=== PATIENT | female | born 1985 | race Caucasian/White ===

== ENCOUNTER → 2021-12-24 | Outpatient (CLI) | payer OTHER ==
--- NOTE | 2021-12-24 11:58 | MR ---
EXAMINATION TYPE: MR lumbar spine wo con DATE OF EXAM: 12/24/2021 COMPARISON: NONE HISTORY: Low back pain, lump on each side of spine above sacrum. TECHNIQUE: T1 and T2 axial and sagittal images of the lumbar spine are submitted. FINDINGS: There is no abnormal signal seen within the visualized spinal cord or paraspinal soft tissu es. Vertebral body hemangioma L3, L2, and T12. Disc interspace and disc signal preserved at all levels. Simple appearing renal cyst. Tiny simple sub centimeter posterior segment right hepatic lobe cysts No soft tissue mass seen within the subcutaneou s tissues within the [id number]. At L1-2 there is no disc herniation, canal stenosis, or foraminal encroachment At L2-3 there is no disc herniation, canal stenosis, or foraminal encroachment At L3-4 there is no disc herniation, canal stenosis, or foraminal encroachment At L4-5 there is no disc herniation, canal stenosis, or foraminal encroachment. Facet arthropathy not ed. Minimal central disc bulging. At L5-S1 there is no disc herniation, canal stenosis, or foraminal encroachment. Facet arthropathy no robb. Spina bifida occulta S1. IMPRESSION: 1. No disc herniation, canal stenosis, or foraminal encroachment. Facet arthropathy L5-S1 and L4-L5 t here are 2 minimal central disc bulging L4-L5.
== END | disposition home or self-care (01) ==
LOC: RADMRIMAIN 10:43
PROVIDERS: ATTEND Physician Assistant Medical
DX: M47.817 Spondylosis without myelopathy or radiculopathy, lumbosacral region (principal); M51.27 Other intervertebral disc displacement, lumbosacral region
CPT/HCPCS: 72148

== ENCOUNTER 2022-12-15 11:33 | Emergency (ER) | payer OTHER ==
[2022-12-15 11:43] VITALS: TEMP 97.7
[2022-12-15] MEDS ORDERED: SODIUM CHLORIDE 0.9% 1,000 ML IV ONE (12:22)
[2022-12-15] MEDS ORDERED: HYDROmorphone 0.5 MG/0.5 ML SYRINGE IVP STA ×2 (12:22→13:59)
[2022-12-15] MEDS ORDERED: ONDANSETRON 4 MG/2 ML VIAL IVP STA (12:22)
--- NOTE | 2022-12-15 12:22 | ED ---
Abdominal Pain HPI - General Chief Complaint: Abdominal Pain Stated Complaint: abd pain Time Seen by Provider: 12/15/22 11:54 Source: patient, EMS, RN notes reviewed Mode of arrival: EMS Limitations: no limitations - History of Present Illness Initial Comments: 37-year-old female with a past medical history significant for breast cancer and Megan's presents to the emergency department with EMS with a chief complaint of pelvic pain. Patient reports worsening pelvic bloating feeling and left lower questions abdominal pain worsening since last night. She describes the pain as sharp. She is complaining of accompanying symptoms of nausea and vomiting. Denies fever, cough, sore throat, chest pain, shortness of breath, palpitations, dysuria, hematuria, vaginal bleeding, vaginal cramping. She does report that she has hyper vasculature in the uterus. - Related Data Home Medications Medication Instructions Recorded Confirmed ALPRAZolam [Xanax] 0.5 mg PO DAILY PRN 12/15/22 12/15/22 Cetirizine HCl [Zyrtec] 10 mg PO DAILY 12/15/22 12/15/22 HYDROcodone/APAP 5-325MG [[place] 1 tab PO Q6H PRN 12/15/22 12/15/22 5-325] Levothyroxine Sodium [Tirosint] 137 mcg PO DAILY 12/15/22 12/15/22 Meloxicam [Mobic] 7.5 mg PO DAILY PRN 12/15/22 12/15/22 Montelukast [Singulair] 10 mg PO HS 12/15/22 12/15/22 Vitamin E (Dl,Tocopheryl Acet) 1,000 unit PO DAILY 12/15/22 12/15/22 [Vitamin E (1000 Iu = 450 MG)] Zolpidem [Ambien] 10 mg PO HS PRN 12/15/22 12/15/22 traMADol HCL 50 mg PO Q6H PRN 12/15/22 12/15/22 traZODone HCL 100 mg PO HS PRN 12/15/22 12/15/22 Allergies Allergy/AdvReac Type Severity Reaction Status Date / Time No Known Allergies Allergy Verified 12/15/22 12:31 Review of Systems ROS Statement: Those systems with pertinent positive or pertinent negative responses have been documented in the HPI. ROS Other: All systems not noted in ROS Statement are negative. Past Medical History Past Medical History: Cancer Additional Past Medical History / Comment(s): Thyroid Cancer, Hasimotos Disease History of Any Multi-Drug Resistant Organisms: None Reported Past Surgical History: Appendectomy, Breast Surgery, Tonsillectomy Past Psychological History: No Psychological Hx Reported Smoking Status: Never smoker Past Alcohol Use History: Rare Past Drug Use History: None Reported General Exam Limitations: no limitations Course Vital Signs 12/15/22 12/15/22 11:35 14:11 Temperature 97.7 F Pulse Rate 67 75 Respiratory 18 16 Rate Blood Pressure 116/79 106/74 O2 Sat by Pulse 99 100 Oximetry Medical Decision Making - Medical Decision Making Was pt. sent in by a medical professional or institution (, PA, DATACAP DEVELOPER, urgent care, hospital, or [facility]...) When possible be specific @ -[No] Did you speak to anyone other than the patient for history (EMS, parent, family, police, friend...)? What history was obtained from this source @ - EMS Did you review nursing and triage notes (agree or disagree)? Why? @ -[I reviewed and agree with nursing and triage notes] Were old charts reviewed (outside hosp., previous admission, EMS record, old EKG, old radiological studies, urgent care reports/EKG's, [facility] records)? Report findings @ -[No old charts were reviewed] Differential Diagnosis (chest pain, altered mental status, abdominal pain women, abdominal pain men, vaginal bleeding, weakness, fever, dyspnea, syncope, headache, dizziness, GI bleed, back pain, seizure, CVA, palpatations, mental health, musculoskeletal)? @ -[not applicable] EKG interpreted by me (3pts min.). @ -[As above] X-rays interpreted by me (1pt min.). @ -[None done] CT interpreted by me (1pt min.). @ -[None done] U/S interpreted by me (1pt. min.). @ -results below What testing was considered but not performed or refused? (CT, X-rays, U/S, labs)? Why? @ -[None] What meds were considered but not given or refused? Why? @ -[None] Did you discuss the management of the patient with other professionals (professionals i.e. , PA, DATACAP DEVELOPER, lab, RT, psych nurse, social work faculty member, draw operator, teacher, chief growth officer, correctional case manager)? Give summary @ -[No] Was smoking cessation discussed for >3mins.? @ -[No] Was critical care preformed (if so, how long)? @ -[No] Were there social determinants of health that impacted care today? How? (Homelessness, low income, unemployed, alcoholism, drug addiction, transportation, low edu. Level, literacy, decrease access to med. care, prison, rehab)? @ -[No] Was there de-escalation of care discussed even if they declined (Discuss DNR or withdrawal of care, Hospice)? DNR status @ -[No] What co-morbidities impacted this encounter? (DM, HTN, Smoking, COPD, CAD, Cancer, CVA, ARF, Chemo, Hep., AIDS, mental health diagnosis, sleep apnea, morbid obesity)? @ -[None] Was patient admitted / discharged? Hospital course, mention meds given and route, prescriptions, significant lab abnormalities, going to OR and other perti nent info. @ -Discharge. This is a pleasant 37 year-old male who presents to the emergency department with a chief complaint of pelvic pain. Patient will thorough history and physical exam performed on the ED. Physical exam is essentially unremarkable. Heart rate regular rate and rhythm, lungs clear to auscultation bilaterally, abdomen soft with generalized tenderness. There are no focal neuro deficits noted upon exam. Patient able to move all extremities freely. Patient lab work and imaging performed is essentially unremarkable: Pelvic ultrasound reveals endometrial at the upper limits of normal with the internal vascularity Discussed results in detail with the patient verbalized understanding all questions were addressed. She was given zofran and dilaudid and 1 L of IV fluids with symptomatic relief on the emergency department. Robert hull is agreeable with the plan for discharge home with return precautions discussed. Patient will be discharged home in stable condition.. Case discussed with [facility]. Chou [facility] who agrees with plan of care Undiagnosed new problem with uncertain prognosis? @ -[No] Drug Therapy requiring intensive monitoring for toxicity (Heparin, Nitro, Insulin, Cardizem)? @ -[No] Were any procedures done? @ -[No] Diagnosis/symptom? @ -Pelvic Pain Acute, or Chronic, or Acute on Chronic? @ -Acute Uncomplicated (without systemic symptoms) or Complicated (systemic symptoms)? @ -Uncomplicated Side effects of treatment? @ -[No] Exacerbation, Progression, or Severe Exacerbation? @ -[No] Poses a threat to life or bodily function? How? (Chest pain, [place], [place], pneumonia, PE, COPD, DKA, ARF, appy, cholecystitis, CVA, Diverticulitis, Homicidal, Suicidal, threat to staff... and all critical care pts) @ -Low likelihood - Lab Data Result diagrams: 12/15/22 12:34 12/15/22 12:34 Lab Results 12/15/22 12/15/22 12/15/22 Range/Units 12:34 12:34 12:34 WBC 11.7 H (3.8-10.6) k/uL RBC 4.43 (3.80-5.40) m/uL Hgb 14.0 (11.4-16.0) gm/dL Hct 42.2 (34.0-46.0) % MCV 95.2 (80.0-100.0) fL MCH 31.5 (25.0-35.0) pg MCHC 33.1 (31.0-37.0) g/dL RDW 12.2 (11.5-15.5) % Plt Count 270 (150-450) k/uL MPV 7.6 Neutrophils % 87 % Lymphocytes % 9 % Monocytes % 3 % Eosinophils % 1 % Basophils % 0 % Neutrophils # 10.1 H (1.3-7.7) k/uL Lymphocytes # 1.1 (1.0-4.8) k/uL Monocytes # 0.3 (0-1.0) k/uL Eosinophils # 0.1 (0-0.7) k/uL Basophils # 0.0 (0-0.2) k/uL Sodium (137-145) mmol/L Potassium (3.5-5.1) mmol/L Chloride (98-107) mmol/L Carbon Dioxide (22-30) mmol/L Anion Gap mmol/L BUN (7-17) mg/dL Creatinine (0.52-1.04) mg/dL Est GFR (CKD-EPI)AfAm (>60 ml/min/1.73 sqM) Est GFR (CKD-EPI)NonAf (>60 ml/min/1.73 sqM) Glucose (74-99) mg/dL Calcium (8.4-10.2) mg/dL Total Bilirubin (0.2-1.3) mg/dL AST (14-36) U/L ALT (4-34) U/L Alkaline Phosphatase (38-126) U/L Total Protein (6.3-8.2) g/dL Albumin (3.5-5.0) g/dL Urine Color Light Yellow Urine Appearance Clear (Clear) Urine pH 7.5 (5.0-8.0) Ur Specific [place] 1.004 (1.001-1.035) Urine Protein Negative (Negative) Urine Glucose (UA) Negative (Negative) Urine Ketones 1+ H (Negative) Urine Blood Negative (Negative) Urine Nitrite Negative (Negative) Urine Bilirubin Negative (Negative) Urine Urobilinogen <2.0 (<2.0) mg/dL Ur Leukocyte Esterase Negative (Negative) Urine HCG, Qual Not Detected (Not Detectd) 12/15/22 Range/Units 12:34 WBC (3.8-10.6) k/uL RBC (3.80-5.40) m/uL Hgb (11.4-16.0) gm/dL Hct (34.0-46.0) % MCV (80.0-100.0) fL MCH (25.0-35.0) pg MCHC (31.0-37.0) g/dL RDW (11.5-15.5) % Plt Count (150-450) k/uL MPV Neutrophils % % Lymphocytes % % Monocytes % % Eosinophils % % Basophils % % Neutrophils # (1.3-7.7) k/uL Lymphocytes # (1.0-4.8) k/uL Monocytes # (0-1.0) k/uL Eosinophils # (0-0.7) k/uL Basophils # (0-0.2) k/uL Sodium 136 L (137-145) mmol/L Potassium 3.8 (3.5-5.1) mmol/L Chloride 103 (98-107) mmol/L Carbon Dioxide 28 (22-30) mmol/L Anion Gap 5 mmol/L BUN 6 L (7-17) mg/dL Creatinine 0.53 (0.52-1.04) mg/dL Est GFR (CKD-EPI)AfAm >90 (>60 ml/min/1.73 sqM) Est GFR (CKD-EPI)NonAf >90 (>60 ml/min/1.73 sqM) Glucose 96 (74-99) mg/dL Calcium 8.7 (8.4-10.2) mg/dL Total Bilirubin 0.8 (0.2-1.3) mg/dL AST 21 (14-36) U/L ALT 20 (4-34) U/L Alkaline Phosphatase 55 (38-126) U/L Total Protein 6.7 (6.3-8.2) g/dL Albumin 4.0 (3.5-5.0) g/dL Urine Color Urine Appearance (Clear) Urine pH (5.0-8.0) Ur Specific [place] (1.001-1.035) Urine Protein (Negative) Urine Glucose (UA) (Negative) Urine Ketones (Negative) Urine Blood (Negative) Urine Nitrite (Negative) Urine Bilirubin (Negative) Urine Urobilinogen (<2.0) mg/dL Ur Leukocyte Esterase (Negative) Urine HCG, Qual (Not Detectd) Disposition Clinical Impression: Pelvic pain Disposition: HOME SELF-CARE Condition: Stable Instructions (If sedation given, give patient instructions): Pelvic Pain in Women (ED) Additional Instructions: Please return to the nearest emergency department if symptoms worsen or persist Please follow-up with her SECOND LANGUAGE TUTOR sometime this week Is patient prescribed a controlled substance at d/c from ED?: No Referrals: Iva Brown DO [Primary Care Provider] - 1-2 days Time of Disposition: 14:39
[2022-12-15 12:45] LABS: Basophils % (A) 0 %; Eosinophils # (A) 0.1 k/uL (0-0.7); Eosinophils % (A) 1 %; HCT 42.2 % (34.0-46.0); Lymphocytes # (A) 1.1 k/uL (1.0-4.8); Lymphocytes % (A) 9 %; MCH 31.5 pg (25.0-35.0); MCHC 33.1 g/dL (31.0-37.0); MCV 95.2 fL (80.0-100.0); Mean Platelet Volume 7.6; Monocytes # (A) 0.3 k/uL (0-1.0); Monocytes % (A) 3 %; Neutrophils # (A) 10.1 k/uL (1.3-7.7); Neutrophils % (A) 87 %; Platelet Count 270 k/uL (150-450); RBC 4.43 m/uL (3.80-5.40); RDW 12.2 % (11.5-15.5); WBC 11.7 k/uL (3.8-10.6)
[2022-12-15 13:09] LABS: ALT 20 U/L (4-34); AST 21 U/L (14-36); African American GFR (CKD) >90 (>60 ml/min/1.73 sqM); Alkaline Phosphatase 55 U/L (38-126); Anion Gap 5 mmol/L; Blood Urea Nitrogen 6 mg/dL (7-17); Calcium 8.7 mg/dL (8.4-10.2); Carbon Dioxide 28 mmol/L (22-30); Chloride 103 mmol/L (98-107); Glucose 96 mg/dL (74-99); Non-African American GFR(CKD) >90 (>60 ml/min/1.73 sqM); Potassium 3.8 mmol/L (3.5-5.1); Sodium 136 mmol/L (137-145); Total Bilirubin 0.8 mg/dL (0.2-1.3); Total Protein 6.7 g/dL (6.3-8.2)
[2022-12-15 13:55] LABS: Appearance,Urine Clear (Clear); Bilirubin,Urine Negative (Negative); Blood,Urine Negative (Negative); Color,Urine Light Yellow; Glucose,Urine (UA) Negative (Negative); Ketones,Urine 1+ (Negative); Leukocyte Esterase,Urine Negative (Negative); Nitrite,Urine Negative (Negative); PH, Urine 7.5 (5.0-8.0); Protein,Urine Negative (Negative); Specific Gravity,Urine 1.004 (1.001-1.035); Urobilinogen,Urine <2.0 mg/dL (<2.0)
[2022-12-15 14:12] VITALS: BP 106/74; PULSE 75; RESP 16
--- NOTE | 2022-12-15 14:19 | US ---
EXAMINATION TYPE: US pelvic complete DATE OF EXAM: 12/15/2022 COMPARISON: US 2010 CLINICAL INDICATION: Female, 37 years old with history of lower abdominal cramping; Pelvic pain, hist ory ablation 1 year ago TECHNIQUE: Transvaginal ER exam Date of LMP: Unknown EXAM MEASUREMENTS: Uterus: 7.0 x 3.4 x 4.3 cm Endometrial Stripe: 1.4 cm Right Ovary: 2.3 x 1.4 x 2.0 cm Left Ovary: not seen 1. Uterus: anteverted 2. Endometrium: borderline thickened with 1.2cm hypoechoic area seen 3. Right Ovary: wnl 4. Left Ovary: not seen Spectral, color and waveform doppler imaging shows good arterial and venous flow within the right o vary; there is no evidence for ovarian torsion within the right ovary. 5. Bilateral Adnexa: prominent vessels - greater on the left 6. Posterior cul-de-sac: free fluid IMPRESSION: 1. Endometrium at the upper limits of normal with with internal vascularity. Findings within the end ometrium could relate to blood products however the patient reports no recent menstruation. Correlate for cervical stenosis, Consider direct visualization. 2. Prominent vessels on the left which could represent pelvic congestion syndrome.
[2022-12-15] MEDS ORDERED: FLUCONAZOLE 150 MG TAB PO STA (14:47)
== END 2022-12-15 15:05 | disposition home or self-care (01) ==
LOC: EC 11:33
DX: R10.2 Pelvic and perineal pain (principal)
CPT/HCPCS: 36415; 80053; 85025; 81003; 81025; 93976; 76830; 99285; 96374; 96375; 96376; 96361; J2405; J1170